=== PATIENT | female | born 1995 | race Caucasian/White ===

== ENCOUNTER → 2017-11-07 | Outpatient (CLI) | payer OTHER ==
[~2017-11-07] MED LIST: CITRANATAL B-C1 EACH PO; IBUP800; IBUP800 PO; OXYACE5T PO; OXYC1TAB11
== END ==
LOC: LAB EV 17:08 → LAB SHORT 17:08
DX: J02.9 Acute pharyngitis, unspecified (principal)
CPT/HCPCS: 87070

== ENCOUNTER → 2021-12-15 | Outpatient (CLI) | payer OTHER | END | disposition home or self-care (01) | LOC: LAB SHORT 17:05 → LAB 17:05 | DX: N39.0 Urinary tract infection, site not specified (principal) | CPT/HCPCS: 87077; 87086; 87186 ==